=== PATIENT | male | born 2000 | race Caucasian/White ===

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

== ENCOUNTER 2021-05-16 21:08 | Emergency (ER) | payer MEDICAID ==
[~2021-05-16] VITALS: Ht 160 cm; Wt 75.0 kg
== END 2021-05-17 00:46 | disposition home or self-care (01) ==
LOC: M ED 21:08
DX: S00.81XA Abrasion of other part of head, initial encounter (principal); W01.198A Fall on same level from slipping, tripping and stumbling with subsequent striking against other object, initial encounter; Y92.018 Other place in single-family (private) house as the place of occurrence of the external cause; Q02 Microcephaly; G93.5 Compression of brain; Z88.0 Allergy status to penicillin; Z88.8 Allergy status to other drugs, medicaments and biological substances

== ENCOUNTER → 2022-06-22 | Outpatient (CLI) | payer MEDICAID ==
[2022-06-22 08:30] LABS: BASO % 0.3 % (0.0-1.0); EOS # 0.1 10^3/uL (0.0-0.5); EOS % 1.1 % (0.0-3.0); HEMATOCRIT 46.3 % (42.0-52.0); HEMOGLOBIN 15.8 g/dl (13.5-17.5); LYMPH # 2.6 10^3/uL (1.5-5.0); LYMPH % 38.4 % (24.0-44.0); MEAN CORPUSCULAR HEMOGLOBIN 27.9 pg (27.0-33.0); MEAN CORPUSCULAR HGB CONC 34.1 g/dl (32.0-36.5); MEAN CORPUSCULAR VOLUME 81.7 fl (80.0-96.0); MONO # 0.4 10^3/uL (0.0-0.8); MONO % 5.7 % (2.0-8.0); NEUTROPHILS # 3.6 10^3/uL (1.5-8.5); NEUTROPHILS % 54.2 % (36.0-66.0); PLATELET COUNT, AUTOMATED 312 10^3/uL (150-450); RED BLOOD COUNT 5.67 10^6/uL (4.30-6.10); WHITE BLOOD COUNT 6.7 10^3/uL (4.0-10.0)
[2022-06-22 08:55] LABS: HEMOGLOBIN A1c 5.6 % (4.0-6.0)
[2022-06-22 09:04] LABS: CHOLESTEROL RISK RATIO 3.05 (<5); HDL CHOLESTEROL 42.6 MG/DL (>40); LDL CHOLESTEROL 75.2 MG/DL (<100); THYROID STIMULATING HORMONE 1.55 uIU/ML (0.48-4.17)
== END ==
LOC: M LAB 07:45
PROVIDERS: ATTEND Nurse Practitioner Family
DX: E66.3 Overweight (principal)

== ENCOUNTER → 2022-07-06 | Outpatient (REF) | payer MEDICAID | LOC: M LAB REF 16:33 | PROVIDERS: ATTEND Nurse Practitioner Family | DX: E55.9 Vitamin D deficiency, unspecified (principal) ==

== ENCOUNTER → 2023-04-17 | Outpatient (CLI) | payer MEDICAID | LOC: M RAD 14:53 | PROVIDERS: ATTEND Nurse Practitioner Family | DX: E04.9 Nontoxic goiter, unspecified (principal) ==

== ENCOUNTER → 2023-08-27 | Outpatient (REF) | payer MEDICAID ==
[2023-08-27 17:03] LABS: BLOOD UREA NITROGEN 21 MG/DL (9-23); CALCIUM LEVEL 9.6 MG/DL (8.5-10.1); CARBON DIOXIDE LEVEL 25 MMOL/L (20-31); CHLORIDE LEVEL 105 MMOL/L (98-107); CREATININE FOR GFR 0.68 MG/DL (0.70-1.30); GLOMERULAR FILTRATION RATE > 60.0 (>60); GLUCOSE, FASTING 103 MG/DL (60-100); POTASSIUM SERUM 4.1 MMOL/L (3.5-5.1); SODIUM LEVEL 137 MMOL/L (136-145)
[2023-08-27 17:05] LABS: THYROID STIMULATING HORMONE 1.395 uIU/ML (0.55-4.78); TOTAL 25(OH) VITAMIN D 26.5 NG/ML (20.0-100.0)
[2023-08-27 17:45] LABS: HEMOGLOBIN A1c 4.9 % (4.0-6.0)
== END ==
LOC: M LAB REF 16:13
PROVIDERS: ATTEND Nurse Practitioner Family
DX: Z68.24 Body mass index [BMI] 24.0-24.9, adult (principal); E55.9 Vitamin D deficiency, unspecified